=== PATIENT | female | born 1980 | race Two or more races ===

== ENCOUNTER 2020-05-29 01:27 | Inpatient (IN) | payer MEDICAID ==
[~2020-05-29] VITALS: Ht 154.9 cm; Wt 86.2 kg
[2020-05-29] MEDS ORDERED: LACTATED RINGERS 1,000 ML IV SCH (02:15)
[2020-05-29] MEDS ORDERED: AMPICILLIN 2,000 MG in SODIUM CHLORIDE 0.9% 100 ML IV NR (02:30)
[2020-05-29] MEDS ORDERED: DEXT 5%/LR + PITOCIN 20UNITS/L 1,000 ML IV SCH ×2 (03:15→04:52)
[2020-05-29] MEDS ORDERED: HEMORRHOIDAL SUPP PR PRN (05:00)
[2020-05-29] MEDS ORDERED: LANOLIN OINT 7GM TUBE TOP PRN (05:00)
[2020-05-29] MEDS ORDERED: METHYLERGONOVINE MALEATE 0.2 MG/ML IM PRN ×2 (05:00)
[2020-05-29] MEDS ORDERED: ACETAMINOPHEN WITH CODEINE 300/30MG TABLET PO PRN (05:00)
[2020-05-29] MEDS ORDERED: BISACODYL 10MG SUPP PR PRN (05:00)
[2020-05-29] MEDS ORDERED: BENZOCAINE/LANOLIN/ALOE VERA SPRAY TOP PRN (05:00)
[2020-05-29] MEDS ORDERED: IBUPROFEN 400MG TABLET PO PRN (05:00)
[2020-05-29] MEDS ORDERED: IBUPROFEN 800MG TABLET PO PRN (05:00)
[2020-05-29] MEDS ORDERED: DIPHENHYDRAMINE 25MG CAPSULE PO PRN (05:00)
[2020-05-29] MEDS ORDERED: ACETAMINOPHEN 500MG TABLET PO PRN (05:00)
[2020-05-29 05:56] LABS: BASOPHILS % 0.5 % (0.0-2.0); EOSINOPHILS % 0.4 % (0.0-5.0); HEMATOCRIT. 39.1 % (36.0-48.0); HEMOGLOBIN. 13.1 g/dL (12.0-16.0); LYMPHOCYTES % 22.1 % (20.0-50.0); MEAN CORPUSCULAR HEMOGLOBIN 32.2 pg (28.0-32.0); MEAN CORPUSCULAR VOLUME 95.8 fL (81.0-99.0); MONOCYTES % 5.5 % (2.0-8.0); NEUTROPHILS % 71.5 % (40.0-76.0); PLATELET 173 x1000/uL (130-400); RED BLOOD CELL COUNT 4.08 mill/uL (4.2-5.4); RED CELL DISTRIBUTION WIDTH 14.8 % (11.6-14.6)
[2020-05-29 06:05] LABS: INR 0.9; PARTIAL THROMBOPLASTIN TIME 24.8 sec (23.4-31.0); PROTHROMBIN TIME 9.3 sec (9.6-11.0)
[2020-05-29 06:10] VITALS: BP 137/80
[2020-05-29 06:40] VITALS: BP 137/88
[2020-05-29] MEDS: GLYCERIN/WITCH HAZEL LEAF MEDICATED PAD TOP PRN (06:46)
[2020-05-29 08:00] VITALS: BP 130/79
[2020-05-29] MEDS ORDERED: AMPICILLIN 1,000 MG in SODIUM CHLORIDE 0.9% 50 ML IV SCH (09:00)
[2020-05-29] MEDS ORDERED: PRENATAL VIT/FE FUMARATE/FA TABLET PO SCH (09:00)
[2020-05-29 11:04] LABS: HEPATITIS B SURFACE ANTIGEN NEGATIVE
[2020-05-29 12:31] LABS: BASOPHILS % 0.9 % (0.0-2.0); EOSINOPHILS % 0.2 % (0.0-5.0); HEMATOCRIT. 37.8 % (36.0-48.0); HEMOGLOBIN. 12.6 g/dL (12.0-16.0); LYMPHOCYTES % 11.6 % (20.0-50.0); MEAN CORPUSCULAR HEMOGLOBIN 31.4 pg (28.0-32.0); MEAN CORPUSCULAR VOLUME 94.4 fL (81.0-99.0); MEAN PLATELET VOLUME 11.5 fl (7.4-10.4); MONOCYTES % 6.2 % (2.0-8.0); NEUTROPHILS % 81.1 % (40.0-76.0); PLATELET 156 x1000/uL (130-400); RED CELL DISTRIBUTION WIDTH 14.6 % (11.6-14.6)
[2020-05-29 16:00] VITALS: BP 127/80
[2020-05-29] MEDS: SIMETHICONE 80MG TABLET CHEW PO SCH ×2 (18:00→21:52)
[2020-05-29 20:51] LABS: CLARITY URINE CLEAR (CLEAR); COLOR URINE YELLOW (YELLOW); KETONES URINE NEGATIVE (NEGATIVE); LEUKOCYTE ESTERASE URINE TRACE (NEGATIVE); NITRITE URINE NEGATIVE (NEGATIVE); OCCULT BLOOD URINE 2+ (NEGATIVE); PROTEIN URINE NEGATIVE (NEGATIVE); SPECIFIC GRAVITY URINE 1.011 (1.005-1.030); UROBILINOGEN URINE 0.2 E.U./dL (0.2-1.0)
[2020-05-29] MEDS ORDERED: DOCUSATE SODIUM 100MG CAPSULE PO SCH (21:00)
[2020-05-29 21:05] LABS: *AMPHETAMINES SCREEN URINE NEGATIVE (NEGATIVE); *BARBITURATES SCREEN URINE NEGATIVE (NEGATIVE); *BENZODIAZEPINES SCREEN URINE NEGATIVE (NEGATIVE); *COCAINE SCREEN URINE NEGATIVE (NEGATIVE); METHADONE URINE SCREEN NEGATIVE (NEGATIVE)
[2020-05-29 21:06] LABS: CANNABINOID URINE SCREEN NEGATIVE (NEGATIVE); OPIATES URINE SCREEN NEGATIVE (NEGATIVE); PHENCYCLIDINE URINE SCREEN NEGATIVE (NEGATIVE)
[2020-05-30 04:45] VITALS: BP 121/83
[2020-05-30] MEDS: GLYCERIN/WITCH HAZEL LEAF MEDICATED PAD TOP PRN (06:35)
[2020-05-30 08:00] VITALS: BP 117/76
[2020-05-30] MEDS: SIMETHICONE 80MG TABLET CHEW PO SCH ×2 (08:38→12:55)
[2020-05-30] MEDS: FERROUS SULFATE 325MG TABLET PO SCH ×2 (08:38→12:30)
== END 2020-05-30 13:45 | disposition home or self-care (01) | DRG 560 ==
LOC: OBSVTOIN 01:27 → 8 EST LDRP 01:27 → 8EST 06:03
PROVIDERS: ADMIT Obstetrics & Gynecology; ATTEND Obstetrics & Gynecology
PROC: 10E0XZZ Delivery of Products of Conception, External Approach (ICD-10-PCS; principal; 2020-05-29)
PROC: 0HQ9XZZ Repair Perineum Skin, External Approach (ICD-10-PCS; 2020-05-29)
DX: O69.1XX0 Labor and delivery complicated by cord around neck, with compression, not applicable or unspecified (principal); O76 Abnormality in fetal heart rate and rhythm complicating labor and delivery; O70.0 First degree perineal laceration during delivery; Z3A.38 38 weeks gestation of pregnancy; Z37.0 Single live birth
CPT/HCPCS: 36415; 80305; 81003; 85025; 86592; 86703; 86762; 86850; 86900; 87340; 99281; G0378; J0290; J2590; J7050; J7120